=== PATIENT | female | born 1990 | race Caucasian/White ===

== ENCOUNTER → 2017-04-26 | Outpatient (CLI) | payer OTHER ==
--- NOTE | 2017-04-27 06:59 | US ---
EXAMINATION TYPE: US OB <= 14 wk fetus DATE OF EXAM: 04/26/2017 COMPARISON: NONE CLINICAL HISTORY: Z36 Confirm dates. EXAM PERFORMED: Transabdominal (TA) EXAM MEASUREMENTS: GESTATIONAL AGE / DATING Physician Established: Not yet established Dates by LMP: (10 weeks/2 days) EDC: 11/20/2017 Dates by First Scan: No previous this is first scan Dates by Current Scan for: (9 weeks/1 days) EDC: 11/28/2017 MATERNAL ANATOMY Uterus: 13.7 x 6.1 x 7.5 cm Right Ovary: 3.1 x 1.9 x 2.6 cm Left Ovary: 2.6 x 1.9 x 1.6 cm Post CDS / Adnexa: wnl Presence of free fluid: no Presence of corpus luteal cyst: no Presence of subchorionic bleed: no GESTATION / SURVEY CRL: 3.25cm (10 weeks/1 days) MSD: 3.1 (8 weeks/0 days) Yolk Sac (normal less than 6mm): not seen Heart Rate: 175 bpm Rhythm: Normal IUP: Viable IUP Date of LMP: 02/13/2017 Beta HcG (if available): Not available at this time Live IUP 9wks 1day BELEN 11/28/2017 HR 175BPM IMPRESSION: Live intrauterine with sonographic age of 9 weeks and 1 day and estimated date of delivery of 11/28/2017. Dates are concordant with menstrual age.
== END | disposition home or self-care (01) ==
LOC: RADUSMAIN 18:21
PROVIDERS: ATTEND Obstetrics & Gynecology
DX: Z36.89 Encounter for other specified antenatal screening (principal); Z3A.09 9 weeks gestation of pregnancy
CPT/HCPCS: 76801

== ENCOUNTER 2017-11-09 14:12 | Outpatient (CLI) | payer OTHER ==
[2017-11-09 15:06] VITALS: BP 130/75; PULSE 90; RESP 16; TEMP 97.7
[2017-11-09 15:07] LABS: Appearance,Urine Cloudy (Clear); Bacteria,Urine Rare /hpf; Bilirubin,Urine Negative (Negative); Blood,Urine Negative (Negative); Color,Urine Yellow; Glucose,Urine (UA) Negative (Negative); Ketones,Urine Negative (Negative); Leukocyte Esterase,Urine Small (Negative); Mucus,Urine Rare /hpf; Nitrite,Urine Negative (Negative); Protein,Urine Trace (Negative); RBC,Urine 1 /hpf (0-5); Specific Gravity,Urine 1.022 (1.001-1.035); Squamous Epithelial Cell,Urine 12 /hpf (0-4); Urobilinogen,Urine <2.0 mg/dL (<2.0); WBC,Urine 5 /hpf (0-5)
[2017-11-09 15:11] LABS: Basophils % (A) 0 %; Eosinophils # (A) 0.1 k/uL (0-0.7); Eosinophils % (A) 1 %; HCT 35.6 % (34.0-46.0); HGB 12.3 gm/dL (11.4-16.0); Lymphocytes # (A) 1.8 k/uL (1.0-4.8); Lymphocytes % (A) 19 %; MCH 27.6 pg (25.0-35.0); MCHC 34.7 g/dL (31.0-37.0); MCV 79.5 fL (80.0-100.0); Mean Platelet Volume 7.2; Monocytes # (A) 0.5 k/uL (0-1.0); Monocytes % (A) 5 %; Neutrophils % (A) 74 %; Platelet Count 218 k/uL (150-450); RBC 4.47 m/uL (3.80-5.40); RDW 14.8 % (11.5-15.5); WBC 9.5 k/uL (3.8-10.6)
[2017-11-09 15:26] LABS: ALT 27 U/L (9-52); AST 15 U/L (14-36); Blood Urea Nitrogen 11 mg/dL (7-17); LDH 291 U/L (313-618)
--- NOTE | 2017-11-11 08:46 | P.MSEPDOC ---
Presenting Problems - Arrival Data Date of Arrival on Unit: 11/09/17 Time of Arrival on Unit: 14:13 Mode of Transport: Ambulatory - Complaint Comment: Pt seen in office by Dr Swan with elevated B/P, sent over for evaluation Medical History - Information : 3 Para: 2 Term: 2 : 0 Abortions: Spontaneous or Elective: 0 Number of Living Children: 2 - Gestational Age Gestational Age by BELEN (wks/days): 37 Weeks and 2 Days - History Complications: Prior Review of Systems - Review of Systems Constitutional: No problems Breast: No problems ENT: No problems Cardiovascular: No problems Respiratory: No problems Gastrointestinal: No problems Genitourinary: No problems Musculoskeletal: No problems Neurological: No problems Skin: No problems Vital Signs - Temperature Temperature: 97.7 F Temperature Source: Temporal Artery Scan - Pulse Pulse Oximetery Pulse Rate: 90 Pulse Assessment Method: Automatic Cuff - Respirations Respiratory Rate: 16 Oxygen Delivery Method: Room Air - Blood Pressure Right Arm Sitting Blood Pressure: 130/75 Blood Pressure Mean: 93 Blood Pressure Source: Automatic Cuff Medical Screen Scoring (Pre) - Cervical Exam Dilation: Exam Deferred Effacement: Exam Deferred Membranes: Intact - Uterine Contractions Frequency: > 5 minutes apart = 1 Duration: N/A Intensity: N/A - Maternal Vital Signs Maternal Temperature: N/A Maternal Blood Pressure: N/A Signs of Preeclampsia: N/A - Pain Assessment Pain Intensity: 0 - Maternal Trauma Maternal Trauma: N/A - Assessment Baseline FHR: 132 Heart Rate - NICHD Category: Category I (Normal) = 0 NST: Reactive Position: N/A Station: N/A - Total Score Total Score (Pre): 1 - Level of Risk Level of Risk: Low (0-5) Physician Notification (Pre) - Physician Notified Physician Notified Date: 11/09/17 Physician Notified Time: 16:00 Physician/Practitioner Notifed:: Dr Swan - Notification Comment Comment: PI labs reviewed by Dr Swan, WNL Disposition - Disposition OB Disposition: Discharge to home Discharge Date: 11/09/17 Discharge Time: 16:15 I agree with the RN Medical Screening Exam: Yes Risk & Benefit of care provided described in d/c instruction: Yes Diagnosis: GESTATIONAL HTN W/O SIGNIFICANT PROTEINURIA, THIRD TRIMESTER
== END 2017-11-09 16:15 | disposition home or self-care (01) ==
LOC: FBPOP 14:12
PROVIDERS: ATTEND Obstetrics & Gynecology
DX: O13.3 Gestational [pregnancy-induced] hypertension without significant proteinuria, third trimester (principal); Z3A.37 37 weeks gestation of pregnancy
CPT/HCPCS: 59025; 82570; 84156; 82565; 83615; 84450; 84460; 84520; 84550; 85025; 81001; G0463; 99215

== ENCOUNTER 2017-11-11 11:07 | Outpatient (CLI) | payer OTHER ==
[2017-11-11 13:10] VITALS: BP 138/76; PULSE 93; RESP 16; TEMP 97.5
--- NOTE | 2017-11-12 02:34 | P.MSEPDOC ---
Presenting Problems - Arrival Data Date of Arrival on Unit: 11/11/17 Time of Arrival on Unit: 11:18 Mode of Transport: Ambulatory - Complaint OB-Reason for Admission/Chief Complaint: NST, Other Comment: pt arrived for nst and serial of blood pressures. pt states she was here on to have her blood pressure checked Medical History - Information : 3 Para: 2 Term: 2 : 0 Abortions: Spontaneous or Elective: 0 Number of Living Children: 2 - Gestational Age Gestational Age by BELEN (wks/days): 37 Weeks and 4 Days - History Complications: Prior Review of Systems - Review of Systems Constitutional: No problems Breast: No problems ENT: No problems Cardiovascular: No problems Respiratory: No problems Gastrointestinal: No problems Genitourinary: No problems Musculoskeletal: No problems Neurological: No problems Skin: No problems Vital Signs - Temperature Temperature: 97.5 F Temperature Source: Oral - Pulse Right Brachial Pulse Rate: 93 Pulse Assessment Method: Automatic Cuff - Respirations Respiratory Rate: 16 Oxygen Delivery Method: Room Air O2 Sat by Pulse Oximetry: 98 - Blood Pressure Right Arm Blood Pressure: 138/76 Blood Pressure Mean: 96 Blood Pressure Source: Automatic Cuff Medical Screen Scoring (Pre) - Cervical Exam Dilation: Exam Deferred Effacement: Exam Deferred Membranes: Intact - Uterine Contractions Frequency: N/A Duration: N/A Intensity: N/A - Maternal Vital Signs Maternal Temperature: N/A Maternal Blood Pressure: N/A Signs of Preeclampsia: N/A Maternal Respirations: N/A - Pain Assessment Pain Scale Used: Numeric (1 - 10) Pain Intensity: 0 Pain Management Goal: 0 Pain Behavior: Vocalization - Maternal Trauma Maternal Trauma: N/A - Assessment Baseline FHR: 130 - Total Score Total Score (Pre): 0 Medical Screen Scoring (Post) - Cervical Exam Dilation: Exam Deferred Effacement: Exam Deferred Membranes: Intact - Uterine Contractions Frequency: N/A Duration: N/A Intensity: N/A - Maternal Vital Signs Maternal Temperature: N/A Signs of Preeclampsia: N/A Maternal Respirations: N/A - Pain Assessment Pain Scale Used: Numeric (1 - 10) Pain Intensity: 0 Pain Management Goal: 0 Pain Behavior: Vocalization - Maternal Trauma Maternal Trauma: N/A - Assessment Heart Rate: 130 Heart Rate - NICHD Category: Category I (Normal) = 0 NST: Reactive Position: N/A Station: N/A - Total Score Total Score (Post): 0 - Post Treatment Level of Risk Post Treatment Level of Risk: Low (0-5) Physician Notification (Post) - Physician Notified Physician Notified Date: 11/11/17 Physician Notified Time: 12:05 Spoke With: dr gamboa New Order Received: Yes - Notification Comment Comment: may discharge to home after reactive nst Disposition - Disposition OB Disposition: Discharge to home Discharge Date: 11/11/17 Discharge Time: 12:35 I agree with the RN Medical Screening Exam: Yes Risk & Benefit of care provided described in d/c instruction: Yes Diagnosis: RELATED CONDITIONS, UNSPECIFIED, THIRD TRIMESTER (nst and bp check)
== END 2017-11-11 12:35 | disposition home or self-care (01) ==
LOC: FBPOP 11:07
PROVIDERS: ATTEND Obstetrics & Gynecology
DX: O26.93 Pregnancy related conditions, unspecified, third trimester (principal); Z3A.37 37 weeks gestation of pregnancy
CPT/HCPCS: 59025; G0463; 99213

== ENCOUNTER 2017-11-13 11:22 | Inpatient (IN) | payer OTHER ==
[2017-11-13 12:11] LABS: Appearance,Urine Clear (Clear); Bilirubin,Urine Negative (Negative); Blood,Urine Negative (Negative); Color,Urine Yellow; Glucose,Urine (UA) 1+ (Negative); Ketones,Urine Negative (Negative); Leukocyte Esterase,Urine Negative (Negative); Nitrite,Urine Negative (Negative); Protein,Urine Negative (Negative); Specific Gravity,Urine 1.015 (1.001-1.035); Urobilinogen,Urine <2.0 mg/dL (<2.0)
[2017-11-13 12:25] LABS: Basophils % (A) 0 %; Eosinophils % (A) 0 %; HCT 36.2 % (34.0-46.0); HGB 12.6 gm/dL (11.4-16.0); Lymphocytes # (A) 1.9 k/uL (1.0-4.8); Lymphocytes % (A) 21 %; MCH 27.5 pg (25.0-35.0); MCHC 34.8 g/dL (31.0-37.0); MCV 79.1 fL (80.0-100.0); Mean Platelet Volume 7.4; Monocytes # (A) 0.7 k/uL (0-1.0); Monocytes % (A) 7 %; Neutrophils # (A) 6.3 k/uL (1.3-7.7); Neutrophils % (A) 69 %; Platelet Count 216 k/uL (150-450); RBC 4.57 m/uL (3.80-5.40); RDW 14.5 % (11.5-15.5); WBC 9.1 k/uL (3.8-10.6)
[2017-11-13 12:36] LABS: Partial Thromboplastin Time 22.6 sec (22.0-30.0); Prothrombin Time 9.5 sec (9.0-12.0)
[2017-11-13 12:39] LABS: ALT 27 U/L (9-52); AST 15 U/L (14-36); Blood Urea Nitrogen 9 mg/dL (7-17); LDH 279 U/L (313-618); Uric Acid 6.1 mg/dL (3.7-7.4)
[2017-11-13] MEDS ORDERED: CITRIC ACID-SODIUM CITRATE 15 ML CUP PO ONE (13:15)
[2017-11-13] MEDS ORDERED: LACTATED RINGERS 1,000 ML IV ONE (13:15)
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
[2017-11-13 15:22] VITALS: BMI 48.6
[2017-11-13 15:41] LABS: Basophils % (A) 0 %; Eosinophils % (A) 0 %; HCT 36.8 % (34.0-46.0); HGB 12.7 gm/dL (11.4-16.0); Lymphocytes # (A) 1.8 k/uL (1.0-4.8); Lymphocytes % (A) 17 %; MCH 27.2 pg (25.0-35.0); MCHC 34.4 g/dL (31.0-37.0); MCV 79.1 fL (80.0-100.0); Mean Platelet Volume 7.3; Monocytes # (A) 0.6 k/uL (0-1.0); Monocytes % (A) 5 %; Neutrophils # (A) 8.1 k/uL (1.3-7.7); Neutrophils % (A) 76 %; Platelet Count 225 k/uL (150-450); RBC 4.65 m/uL (3.80-5.40); RDW 14.6 % (11.5-15.5); WBC 10.6 k/uL (3.8-10.6)
[2017-11-13] MEDS: LACTATED RINGERS 1,000 ML IV SCH ×3 (17:26→22:40)
[2017-11-13] MEDS ORDERED: MORPHINE SULFATE (PF) 0.3 MG/0.3 ML SYR ONE (17:39)
[2017-11-13] MEDS ORDERED: ONDANSETRON 4 MG/2 ML VIAL ONE (17:39)
[2017-11-13] MEDS ORDERED: PHENYLEPHRINE-0.9% NACL SYG 1 MG/10 ML SYRINGE ONE (17:39)
[2017-11-13] MEDS ORDERED: OXYTOCIN 10 UNIT/ML 1 ML VIAL ONE (17:39)
[2017-11-13] MEDS ORDERED: LACTATED RINGERS 1,000 ML BAG IV ONE (17:39)
[2017-11-13] MEDS ORDERED: KETOROLAC 30 MG/ML 1 ML VIAL ONE (17:39)
[2017-11-13] MEDS ORDERED: NALBUPHINE 10 MG/ML AMPUL IV PRN (18:06)
[2017-11-13] MEDS ORDERED: MORPHINE SULFATE 2 MG/ML SYRINGE IVP PRN (18:06)
[2017-11-13] MEDS ORDERED: NALOXONE 0.4 MG/ML 1 ML VIAL IV PRN ×2 (18:06→18:13)
[2017-11-13] MEDS ORDERED: diphenhydrAMINE 50 MG/ML 1 ML VIAL IVP PRN ×3 (18:06→18:13)
[2017-11-13] MEDS ORDERED: KETOROLAC 30 MG/ML 1 ML VIAL IVP PRN (18:13)
[2017-11-13] MEDS ORDERED: ZOLPIDEM 5 MG TAB PO PRN (18:13)
[2017-11-13] MEDS ORDERED: ACETAMINOPHEN TAB 325 MG TAB PO PRN (18:13)
[2017-11-13] MEDS ORDERED: diphenhydrAMINE 50 MG CAP PO PRN (18:13)
[2017-11-13] MEDS ORDERED: METOCLOPRAMIDE 5 MG/ML 2 ML VIAL IVP PRN (18:13)
[2017-11-13] MEDS ORDERED: ONDANSETRON 4 MG/2 ML VIAL IVP PRN (18:13)
[2017-11-13] MEDS ORDERED: HYDROcodone/APAP 7.5-325MG 1 EACH TAB PO PRN (18:13)
[2017-11-13] MEDS ORDERED: diphenhydrAMINE 25 MG CAP PO PRN (18:13)
--- NOTE | 2017-11-13 18:17 | P.OP ---
Date of Procedure: 11/13/17 Preoperative Diagnosis: Intrauterine at term: Previous section: Polyhydramnios Postoperative Diagnosis: Same Procedure(s) Performed: Repeat low-transverse section Anesthesia: spinal Surgeon: Todd Swan Business Line Manager #1: Edwin Tony Pathology: other (Placenta) Condition: stable Disposition: floor Operative Findings: Male scores of 9 and 9 at one and 5 minutes respectively and the weight was 9 lbs. 11 oz. a nuchal cord 1 was noted and easily reduced. Description of Procedure: Patient was taken to the operating suite where a spinal anesthetic was found be adequate. She was prepped and draped in the normal sterile fashion and placed in the dorsal supine position with leftward tilt. Initially a Pfannenstiel skin incision was made and this incision was then carried through to underlying layer of the fascia with a second knife. Fascia was then nicked in the midline and this opening was extended laterally with Saavedra scissors. Superior and inferior aspect of this incision were then grasped tented up and bluntly and sharply dissected off the rectus muscles. Rectus muscles were then divided midline and blunt dissection through the peritoneum was made. This opening was then extended superiorly and inferiorly with good visualization of both bowel bladder. Bladder blade was then placed and the bladder flap was identified, entered sharply with Metzenbaum scissors and bladder flap was digitally created. Knife was then used to make ilana incision in the uterus and hemostat was used to complete the opening through the amniotic sac. Significant quantity of the amniotic fluid was drained before fully extending the incision. Head was then H medically delivered mouth nares were bulb suctioned and a nuchal cord 1 was easily reduced. Anterior and posterior shoulders were then delivered gentle downward upper traction followed by the remainder the baby. Umbilical cord was then clamped cut usual fashion an nursery personnel was present to assume care. Ascent was then delivered intact Pitocin was added to the IV. Uterus was then exteriorized cleared of clots and debris and closed in 2 layers with 0 Vicryl suture. Blood and debris was then suctioned from the posterior cul-de-sac and the uterus was reinserted into the abdomen. Peritoneal layer was then closed with 0 Vicryl suture fascial layer was closed with 0 Vicryl suture 3-0 Vicryl was then used to reapproximate the skin and the skin was then closed with memo. Sponge, lap, needle counts were all correct 2. Patient was then taken to the recovery room in stable and satisfactory condition.
[2017-11-13] MEDS: SENNOSIDES-DOCUSATE SODIUM 1 EACH TAB PO SCH (20:44)
[2017-11-14] MEDS: LACTATED RINGERS 1,000 ML IV SCH (04:58)
--- NOTE | 2017-11-14 06:11 | P.PN ---
Progress Note - Text Progress Note Date: 11/14/17 26 yo female status post . Post-op day #1. Patient received intrathecal Duramorph. Patient was seen today, sitting up in bed no complaints, pain VAS score 0/10, no headache, no itching, no nausea and vomiting. Assessment and plan: Doing well in general no complications from anesthesia.
[2017-11-14 07:29] LABS: Basophils % (A) 0 %; Eosinophils % (A) 1 %; HCT 32.9 % (34.0-46.0); HGB 11.2 gm/dL (11.4-16.0); Lymphocytes # (A) 1.4 k/uL (1.0-4.8); Lymphocytes % (A) 15 %; MCH 27.3 pg (25.0-35.0); MCHC 34.1 g/dL (31.0-37.0); Mean Platelet Volume 7.4; Monocytes # (A) 0.6 k/uL (0-1.0); Monocytes % (A) 7 %; Neutrophils # (A) 7.3 k/uL (1.3-7.7); Neutrophils % (A) 77 %; Platelet Count 164 k/uL (150-450); RBC 4.12 m/uL (3.80-5.40); RDW 14.5 % (11.5-15.5); WBC 9.5 k/uL (3.8-10.6)
[2017-11-14] MEDS: SENNOSIDES-DOCUSATE SODIUM 1 EACH TAB PO SCH ×2 (08:00→19:56)
--- NOTE | 2017-11-14 10:05 | PN ---
Subjective - Subjective Principal diagnosis: Post op day 1: Repeat section Interval history: Doing very well, involuting, voiding and she is tolerating her diet. Patient reports: Reports appetite normal, Reports voiding normally, Reports pain well controlled, Reports ambulating normally Drake: doing well Objective - Exam Lungs: bilateral: normal Chest: Normal S1, Normal S2 Extremities: Present: normal Abdomen: Present: normal appearance, soft. Absent: distention, tenderness Incision: Present: normal, dry, intact Uterus: Present: normal, firm MTDD
[2017-11-14] MEDS: IBUPROFEN 600 MG TAB PO PRN ×2 (15:02→22:57)
[2017-11-15 00:23] VITALS: RESP 16
[2017-11-15] MEDS: SENNOSIDES-DOCUSATE SODIUM 1 EACH TAB PO SCH (07:12)
[2017-11-15] MEDS: IBUPROFEN 600 MG TAB PO PRN ×2 (07:12→12:51)
--- NOTE | 2017-11-15 08:51 | P.DS ---
Providers Date of admission: 11/13/17 12:43 Expected date of discharge: 11/15/17 Attending physician: Todd Swan Primary care physician: Stated None Hospital Course: Renetta is doing very well postop day 2. She is involuting, voiding, and she is tolerating her diet. She voices no complaints. Vital signs are stable and afebrile. Heart regular, lungs clear, extremities without pain. Her abdomen is soft, positive bowel sounds are noted, incision is otherwise clean dry and intact. We'll plan to have her follow up with me on Monday for staple removal. Prescription for Motrin has been forwarded to her pharmacy. All other questions are answered for her and she is stable for discharge at this time. Patient Condition at Discharge: Good Plan - Discharge Summary New Discharge Prescriptions: New Ibuprofen [Motrin] 600 mg PO Q6HR PRN #30 tab PRN Reason: Pain No Action Pnv,Calcium 72/Iron/Folic Acid [ Plus Tablet] 1 tab PO DAILY Discharge Medication List Pnv,Calcium 72/Iron/Folic Acid [ Plus Tablet] 1 tab PO DAILY 11/09/17 [ History] Ibuprofen [Motrin] 600 mg PO Q6HR PRN #30 tab 11/15/17 [Rx] Follow up Appointment(s)/Referral(s): Todd Swan DO [Doctor of Osteopathic Medicine] - 11/17/17 Activity/Diet/Wound Care/Special Instructions: No heavy lifting, limit stairs and driving, and pelvic rest. If any high temperatures, heavy bleeding, or severe pain call my office. Please follow up on Monday for staple removal in the office. Discharge Disposition: HOME SELF-CARE
[2017-11-15] MEDS: LACTATED RINGERS 1,000 ML IV SCH ×2 (09:24→12:17)
[2017-11-15 09:27] VITALS: BP 120/58; PULSE 108; TEMP 98.4
== END 2017-11-15 13:30 | disposition home or self-care (01) | DRG 765 ==
LOC: FBPOP 11:22 → 4FBP 12:43
PROVIDERS: ADMIT Obstetrics & Gynecology; ATTEND Obstetrics & Gynecology
PROC: 10D00Z1 Extraction of Products of Conception, Low, Open Approach (ICD-10-PCS; principal; 2017-11-13)
DX: O13.4 Gestational [pregnancy-induced] hypertension without significant proteinuria, complicating childbirth (principal); O40.3XX0 Polyhydramnios, third trimester, not applicable or unspecified; O34.211 Maternal care for low transverse scar from previous cesarean delivery; Z37.0 Single live birth; Z3A.37 37 weeks gestation of pregnancy; O69.81X0 Labor and delivery complicated by cord around neck, without compression, not applicable or unspecified; Z81.8 Family history of other mental and behavioral disorders; Z83.3 Family history of diabetes mellitus; Z87.440 Personal history of urinary (tract) infections
CPT/HCPCS: 59025; 81003; 82565; 82570; 83615; 84156; 84450; 84460; 84520; 84550; 85025; 85610; 85730; 86850; 86900; 86901; 88307; 99215

== ENCOUNTER 2017-11-22 18:50 | Emergency (ER) | payer OTHER ==
[2017-11-22 18:57] VITALS: BP 142/86; PULSE 70; RESP 16; TEMP 98.4
[2017-11-22] MEDS ORDERED: ACETAMINOPHEN TAB 500 MG TAB PO STA (19:07)
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
--- NOTE | 2017-11-22 20:22 | CT ---
EXAMINATION TYPE: CT brain wo con DATE OF EXAM: 11/22/2017 COMPARISON: 03/25/2012 HISTORY: Headache x 4 days, patient is [address] DLP: 1052 mGycm. Automated Exposure Control for Dose Reduction was Utilized. TECHNIQUE: CT scan of the head is performed without contrast. FINDINGS: Ventricles and sulci appear normal. There is no mass effect nor midline shift. There is n o sign of intracranial hemorrhage. The calvarium appears normal. IMPRESSION: Normal head CT scan. No change..
== END 2017-11-22 20:50 | disposition home or self-care (01) ==
LOC: EC 18:50
DX: R51 Headache (principal)
CPT/HCPCS: 70450; 99284

== ENCOUNTER → 2018-06-14 | Outpatient (CLI) | payer OTHER ==
--- NOTE | 2018-06-14 11:58 | US ---
EXAMINATION TYPE: Transabdominal DATE OF EXAM: 09/12/17 COMPARISON: NONE CLINICAL HISTORY: O46.91 Antepartum hemorrhage First trimester. EXAM PERFORMED: Transvaginal (TV) and Transabdominal (TA) EXAM MEASUREMENTS: GESTATIONAL AGE / DATING Physician Established: (12 weeks/1 days) EDC: 12/26/2018 Dates by LMP: (12 weeks/1 days) EDC: 12/26/2018 Dates by First Scan: No previous this is first scan Dates by Current Scan for: (6 weeks/6 days) EDC: demise MATERNAL ANATOMY Uterus: 12.3 x 5.3 x 6.7 cm Right Ovary: 4.7 x 3.3 x 4.1 cm Left Ovary: 2.0 x 1.6 x 2.1 cm Post CDS / Adnexa: wnl Presence of free fluid: No GESTATION / SURVEY CRL: 0.63 (6 weeks/4 days) MSD: 2.6 cm (7 weeks/2 days) Yolk Sac (normal less than 6mm): 2 mm IUP: Demise Date of LMP: 03/21/2018 Beta HcG (if available): Not available at this time demise. Cystic area right ovary measuring 3.3 x 2.5 x 3.2 cm. Hypoechoic area left ovary measur ing 1.2 x 1.2 x 1.4 cm. Multiple tiny cystic areas visualized to the left of the gestational sac. Nab othian cyst visualized within cervix IMPRESSION: Findings correspond to failed intrauterine as the mean sac diameter is greater than 2.5 cm and no heart rate is identified. Additionally there is discordant growth in comparison to the p rior exam of 04/26/2017 where the fetus measured 9 weeks and 1 day and currently measures 6 weeks and 6 days. Findings were communicated Chrishonda with at Dr. Mckinley's office as Dr. Mckinley was unavailable (and already aware of the results per staff) by Dr. Oglesby at 1150am on 06-14-18.
== END | disposition home or self-care (01) ==
LOC: RADUSWWP 10:54
PROVIDERS: ATTEND Obstetrics & Gynecology
DX: O46.91 Antepartum hemorrhage, unspecified, first trimester (principal); Z3A.01 Less than 8 weeks gestation of pregnancy
CPT/HCPCS: 76801; 76817

== ENCOUNTER 2018-06-21 12:37 | Emergency (ER) | payer OTHER ==
[2018-06-21 12:43] VITALS: PULSE 80; RESP 18; TEMP 97.5
[2018-06-21] MEDS ORDERED: SODIUM CHLORIDE 0.9% 1,000 ML IV STA (14:01)
[2018-06-21 14:59] LABS: Basophils % (A) 0 %; Eosinophils % (A) 0 %; HCT 38.5 % (34.0-46.0); HGB 13.3 gm/dL (11.4-16.0); Lymphocytes # (A) 1.2 k/uL (1.0-4.8); Lymphocytes % (A) 11 %; MCH 27.9 pg (25.0-35.0); MCHC 34.6 g/dL (31.0-37.0); MCV 80.7 fL (80.0-100.0); Mean Platelet Volume 7.1; Monocytes # (A) 0.4 k/uL (0-1.0); Monocytes % (A) 4 %; Neutrophils # (A) 9.6 k/uL (1.3-7.7); Neutrophils % (A) 85 %; Platelet Count 231 k/uL (150-450); RBC 4.77 m/uL (3.80-5.40); RDW 13.7 % (11.5-15.5); WBC 11.3 k/uL (3.8-10.6)
[2018-06-21 15:04] LABS: Appearance,Urine Turbid (Clear); Bilirubin,Urine Negative (Negative); Blood,Urine Large (Negative); Color,Urine Red; Glucose,Urine (UA) Negative (Negative); Ketones,Urine 1+ (Negative); Leukocyte Esterase,Urine Small (Negative); Mucus,Urine Many /hpf; Nitrite,Urine Negative (Negative); PH, Urine 5.5 (5.0-8.0); Protein,Urine 2+ (Negative); RBC,Urine >182 /hpf (0-5); Urobilinogen,Urine <2.0 mg/dL (<2.0); WBC,Urine 3 /hpf (0-5)
[2018-06-21 15:07] LABS: ALT 55 U/L (9-52); AST 28 U/L (14-36); Albumin 4.6 g/dL (3.5-5.0); Alkaline Phosphatase 43 U/L (38-126); Anion Gap 12 mmol/L; Blood Urea Nitrogen 9 mg/dL (7-17); Calcium 9.8 mg/dL (8.4-10.2); Carbon Dioxide 23 mmol/L (22-30); Chloride 107 mmol/L (98-107); Glucose 112 mg/dL (74-99); Lipase 90 U/L (23-300); Potassium 4.5 mmol/L (3.5-5.1); Sodium 142 mmol/L (137-145); Total Bilirubin 0.6 mg/dL (0.2-1.3); Total Protein 8.1 g/dL (6.3-8.2)
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
[2018-06-21 16:17] VITALS: BP 117/74
== END 2018-06-21 16:17 | disposition home or self-care (01) ==
LOC: EC 12:37
DX: O03.9 Complete or unspecified spontaneous abortion without complication (principal); R51 Headache; Z90.49 Acquired absence of other specified parts of digestive tract
CPT/HCPCS: 36415; 80053; 81001; 83690; 85025; 96360; 99284

== ENCOUNTER → 2019-03-28 | Outpatient (CLI) | payer OTHER ==
--- NOTE | 2019-03-28 10:11 | US ---
EXAMINATION TYPE: Transabdominal DATE OF EXAM: 03/28/2019 9:47 AM COMPARISON: NONE CLINICAL HISTORY: Z36 CONFIRM DATES. Confirm dates, 6, para 3, miscarriage 2 EXAM PERFORMED: Transabdominal (TA) EXAM MEASUREMENTS: GESTATIONAL AGE / DATING Physician Established: (8 weeks/6 days) EDC: 11/01/2019 Dates by LMP: (8 weeks/6 days) EDC: 11/01/2019 Dates by First Scan: This is 1st scan Dates by Current Scan for: ( 8 weeks/4 days) EDC: 11/01/2019 MATERNAL ANATOMY Uterus: 13.5 x 5.9 x 6.1cm, anteverted Right Ovary: 3.2 x 2.2 x 2.1cm Left Ovary: 2.9 x 1.6 x 2.1cm Post CDS / Adnexa: wnl Presence of free fluid: no Presence of corpus luteal cyst: right ovary: 1.4 x 1.2 x 1.4cm hypoechoic area, possible corpus luteu m Presence of subchorionic bleed: no GESTATION / SURVEY CRL: 1.9cm (8 weeks/4 days) Yolk Sac (normal less than 6mm): not seen at this time Heart Rate: 183 bpm Rhythm: Normal IUP: Live IUP Date of LMP: 01/25/2019 Live single IUP measuring 8 weeks 4 days with a heart rate of 183bpm and an estimated delivery date o f 11/03/2019. IMPRESSION: Live intrauterine with a sonographic age of 8 weeks and 4 days and estimated da te of delivery of 11/03/2019, concordant with menstrual age. heart rate is noted to be upper reilly its of normal at 183.
== END | disposition home or self-care (01) ==
LOC: RADUSWWP 09:31
PROVIDERS: ATTEND Obstetrics & Gynecology
DX: Z36.87 Encounter for antenatal screening for uncertain dates (principal); Z3A.08 8 weeks gestation of pregnancy
CPT/HCPCS: 76801

== ENCOUNTER → 2019-10-25 | Outpatient (CLI) | payer OTHER | END | disposition home or self-care (01) | LOC: LABWHC1 10:03 | PROVIDERS: ATTEND Obstetrics & Gynecology | DX: U07.1 COVID-19 (principal) | CPT/HCPCS: 87635 ==

== ENCOUNTER 2019-10-28 06:04 | Inpatient (IN) | payer OTHER ==
[2019-10-25 12:29] VITALS: BMI 48.4
[2019-10-28] MEDS ORDERED: LACTATED RINGERS 1,000 ML IV ONE (06:18)
[2019-10-28] MEDS ORDERED: CITRIC ACID-SODIUM CITRATE 15 ML CUP PO ONE (06:18)
[2019-10-28 06:38] LABS: Basophils % (A) 0 %; Eosinophils # (A) 0.1 k/uL (0-0.7); Eosinophils % (A) 1 %; HGB 12.1 gm/dL (11.4-16.0); Lymphocytes # (A) 1.8 k/uL (1.0-4.8); Lymphocytes % (A) 20 %; MCH 27.7 pg (25.0-35.0); MCHC 33.4 g/dL (31.0-37.0); MCV 82.9 fL (80.0-100.0); Mean Platelet Volume 7.7; Monocytes # (A) 0.5 k/uL (0-1.0); Monocytes % (A) 5 %; Neutrophils # (A) 6.5 k/uL (1.3-7.7); Neutrophils % (A) 72 %; Platelet Count 201 k/uL (150-450); RBC 4.35 m/uL (3.80-5.40); RDW 14.2 % (11.5-15.5)
[2019-10-28] MEDS ORDERED: ceFAZolin 3 GM in SODIUM CHLORIDE 0.9% 100 ML IVPB ONE (07:00)
[2019-10-28] MEDS: LACTATED RINGERS 1,000 ML IV SCH ×5 (07:26→23:28)
[2019-10-28] MEDS ORDERED: PROPOFOL 10 MG/ML 20 ML VIAL IV ONE (08:02)
[2019-10-28] MEDS ORDERED: SUCCINYLCHOLINE CHLORIDE 100 MG/5 ML SYR IV ONE (08:02)
[2019-10-28] MEDS ORDERED: fentaNYL (PF) 50 MCG/ML 2 ML AMP ONE (08:02)
[2019-10-28] MEDS ORDERED: OXYTOCIN 10 UNIT/ML 1 ML VIAL ONE (08:02)
[2019-10-28] MEDS ORDERED: KETOROLAC 30 MG/ML 1 ML VIAL ONE (08:02)
[2019-10-28] MEDS ORDERED: ONDANSETRON 4 MG/2 ML VIAL ONE (08:02)
[2019-10-28] MEDS ORDERED: diphenhydrAMINE 50 MG CAP PO PRN (08:47)
[2019-10-28] MEDS ORDERED: HYDROcodone/APAP 7.5-325MG 1 EACH TAB PO PRN (08:47)
[2019-10-28] MEDS ORDERED: NALOXONE 0.4 MG/ML 1 ML VIAL IV PRN (08:47)
[2019-10-28] MEDS ORDERED: MEASLES-MUMPS-RUBELLA VACC/PF 12,500 UNIT/0.5 ML VIAL SQ ONE (08:47)
[2019-10-28] MEDS ORDERED: ZOLPIDEM 5 MG TAB PO PRN (08:47)
[2019-10-28] MEDS ORDERED: diphenhydrAMINE 25 MG CAP PO PRN (08:47)
[2019-10-28] MEDS ORDERED: ONDANSETRON 4 MG/2 ML VIAL IVP PRN (08:47)
[2019-10-28] MEDS ORDERED: METOCLOPRAMIDE 5 MG/ML 2 ML VIAL IVP PRN (08:47)
[2019-10-28] MEDS ORDERED: diphenhydrAMINE 50 MG/ML 1 ML VIAL IVP PRN ×2 (08:47)
[2019-10-28] MEDS ORDERED: KETOROLAC 30 MG/ML 1 ML VIAL IVP PRN (08:47)
[2019-10-28] MEDS ORDERED: ACETAMINOPHEN TAB 325 MG TAB PO PRN (08:47)
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
--- NOTE | 2019-10-28 08:57 | P.OP ---
Date of Procedure: 10/28/19 Preoperative Diagnosis: Intrauterine at term: Prior sections: Polyhydramnios: Family planning Postoperative Diagnosis: Same Procedure(s) Performed: Repeat low transverse section with bilateral tubal occlusion Filshie clips Anesthesia: SON Surgeon: Todd Swan Weeder Thinner #1: Edwin Tony Estimated Blood Loss (ml): 800 IV fluids (ml): 500 Urine output (ml): 200 Pathology: other (Placenta) Condition: stable Disposition: floor Operative Findings: Female scores of 9 and 9 at one and 5 minutes respectively and weight was 7 lbs. 15 oz. A decision to move for a general anesthetic was made due to history of visual disturbances after her last section and concern over potential MS. Description of Procedure: Patient was taken to the operating suite where a general anesthetic was found be adequate. She was prepped and draped in normal sterile fashion and placed in dorsal supine position with leftward tilt. Initially a Pfannenstiel skin incision was made this incision was then carried through to underlying layer of the fascia was second knife. Fascia was then nicked in the midline and this opening was extended laterally with Saavedra scissors. Superior and inferior aspect of this incision were then grasped tented up and bluntly and sharply dissected off the rectus muscles. Entry into the peritoneum was RE performed and blunt dissection laterally was made. Bladder blade was then placed bladder flap identified and entered with metastases scissors and bluntly dissected out of the operative field. Knife was then used to fully open the uterus and it was then extended bluntly. Artificial rupture membranes was performed and clear fluid is noted. Large quantity of amniotic fluid is noted due to polyhydramnios. Head was then H medically delivered and mouth nares were bulb suctioned. Interim posterior shoulders were then Easily delivered and the umbilical cord was clamped cut usual fashion nursery personnel present to assume care. Placenta was then delivered intact and Pitocin was added to the IV. Uterus was then exteriorized cleared of clots and debris and closed in 1 layer with 0 Vicryl suture. Once excellent hemostasis was obtained. Gloves were used to clip both the right and left fallopian tubes 2 cm from uterine cornu. Blood and debris was then suctioned from the posterior cul-de-sac and uterus was reinserted into the abdomen peritoneal layer was then reapproximated with 3-0 Vicryl suture. Fascial layer was then closed with 0 Vicryl suture. One layer of 3-0 Vicryl was placed in deep subcuticular tissues reapproximate skin and close that space. Skin was then closed with 3-0 Vicryl subcuticular. Sponge, lap, needle counts were all correct 2. A she was then taken to the recovery room in stable and satisfactory condition.
[2019-10-28] MEDS ORDERED: HYDROmorphone PCA 10 MG/50 ML BAG IV PRN (09:27)
[2019-10-28] MEDS: SENNOSIDES-DOCUSATE SODIUM 1 EACH TAB PO SCH (20:31)
[2019-10-29] MEDS: LACTATED RINGERS 1,000 ML IV SCH ×3 (05:48→21:46)
[2019-10-29 06:16] LABS: Basophils % (A) 0 %; Eosinophils # (A) 0.1 k/uL (0-0.7); Eosinophils % (A) 1 %; HCT 27.2 % (34.0-46.0); Lymphocytes # (A) 1.1 k/uL (1.0-4.8); Lymphocytes % (A) 15 %; MCHC 33.5 g/dL (31.0-37.0); MCV 83.6 fL (80.0-100.0); Mean Platelet Volume 7.7; Monocytes # (A) 0.4 k/uL (0-1.0); Monocytes % (A) 6 %; Neutrophils # (A) 5.2 k/uL (1.3-7.7); Neutrophils % (A) 77 %; Platelet Count 153 k/uL (150-450); RBC 3.25 m/uL (3.80-5.40); RDW 14.6 % (11.5-15.5); WBC 6.8 k/uL (3.8-10.6)
[2019-10-29 06:17] LABS: HGB 9.1 gm/dL (11.4-16.0)
[2019-10-29] MEDS: SENNOSIDES-DOCUSATE SODIUM 1 EACH TAB PO SCH ×2 (08:42→21:44)
--- NOTE | 2019-10-29 09:33 | P.PNOBGPC ---
Subjective - Subjective Principal diagnosis: Postop day 1 Interval history: Renetta is doing very well postop day 1. She is involuting, voiding and tolerating her diet. She voices no complaints. Advance diet today. Patient reports: Reports appetite normal, Reports voiding normally, Reports pain well controlled, Reports ambulating normally : doing well Objective - Vital Signs Latest vital signs: Vital Signs Temp Pulse Resp BP Pulse Ox 10/29/19 08:00 98.5 F 100 16 130/71 99 10/29/19 04:00 98.6 F 83 20 112/62 10/29/19 00:00 98.6 F 88 18 108/55 10/28/19 20:00 98.6 F 82 16 104/66 10/28/19 16:00 98.4 F 80 16 145/83 98 10/28/19 10:57 98.3 F 80 16 124/65 98 10/28/19 10:27 97.8 F 93 16 115/68 10/28/19 09:57 96.1 F L 93 16 112/55 99 10/28/19 09:42 96.6 F L 76 16 127/63 98 Intake and Output 10/28/19 10/29/19 10/29/19 22:59 06:59 14:59 Intake Total 600 Output Total 850 0 700 Balance -250 0 -700 Intake: Oral 600 Output: Urine 850 0 700 Straight 400 Uretheral (Danielle) 450 - Exam Lungs: bilateral: normal Chest: Normal S1, Normal S2 Extremities: Present: normal Abdomen: Present: normal appearance, soft. Absent: distention, tenderness Incision: Present: normal, dry, intact Uterus: Present: normal, firm - Labs Labs: Abnormal Lab Results - Last 24 Hours (Table) 10/29/19 Range/Units 06:01 RBC 3.25 L (3.80-5.40) m/uL Hgb 9.1 L D (11.4-16.0) gm/dL Hct 27.2 L (34.0-46.0) %
--- NOTE | 2019-10-29 10:41 | P.PN ---
Progress Note - Text Progress Note Date: 10/29/19 Patient seen and examined at beside. POD #1 from with spinal anesthesia and duramorph. Patient tolerated procedure well and has no complaints today. Patient denies CP, SOB, fevers, chills, back pain, numbness, headaches, dizziness. Patient can ambulate without difficulty and is voiding normally. procedure site is clean, dry without erythema. All questions answered.
[2019-10-29] MEDS: IBUPROFEN 600 MG TAB PO PRN ×2 (13:15→21:44)
[2019-10-30 01:20] VITALS: RESP 16
[2019-10-30] MEDS: IBUPROFEN 600 MG TAB PO PRN (06:11)
[2019-10-30 08:16] VITALS: BP 129/70; PULSE 89; TEMP 98.1
--- NOTE | 2019-10-30 08:52 | P.DS ---
Providers Date of admission: 10/28/19 06:04 Expected date of discharge: 10/30/19 Attending physician: Todd Swan Primary care physician: Stated None Hospital Course: Renetta is doing very well postop day 2. She is requesting discharge to home today. She is involuting, voiding tolerating her diet. She is also passing flatus. Vital signs are stable and afebrile. Heart regular, lungs clear, extremities without pain. Abdomen soft uterus is firm and lochia is light. Her incision is otherwise clean dry and intact. She'll follow me in 1 week. Prescription for Motrin is for to pharmacy at her request. All other questions are answered for her and she is stable for discharge at this time. Patient Condition at Discharge: Good Plan - Discharge Summary Discharge Rx Participant: Yes New Discharge Prescriptions: New Ibuprofen [Motrin] 600 mg PO Q6HR PRN #30 tab PRN Reason: Pain No Action Pnv No.95/Ferrous Fum/Folic AC [ Multivitamin Tablet] 1 each PO DAILY Calcium Carbonate [Tums] 500 mg PO DIRECTED PRN PRN Reason: Heartburn Discharge Medication List Calcium Carbonate [Tums] 500 mg PO DIRECTED PRN 10/25/19 [History] Pnv No.95/Ferrous Fum/Folic AC [ Multivitamin Tablet] 1 each PO DAILY 10/25/19 [History] Ibuprofen [Motrin] 600 mg PO Q6HR PRN #30 tab 10/30/19 [Rx] Follow up Appointment(s)/Referral(s): Todd Swan DO [Doctor of Osteopathic Medicine] - 1 Week Activity/Diet/Wound Care/Special Instructions: No heavy lifting, limit stairs and driving, and pelvic rest. If any high temperatures, heavy bleeding, or severe pain call my office Discharge Disposition: HOME SELF-CARE
[2019-10-30] MEDS: SENNOSIDES-DOCUSATE SODIUM 1 EACH TAB PO SCH (10:52)
== END 2019-10-30 12:15 | disposition home or self-care (01) | DRG 785 ==
LOC: 4FBP 06:04
PROVIDERS: ADMIT Obstetrics & Gynecology; ATTEND Obstetrics & Gynecology
PROC: 10D00Z1 Extraction of Products of Conception, Low, Open Approach (ICD-10-PCS; principal; 2019-10-28 08:00)
PROC: 3E00X4Z Introduction of Serum, Toxoid and Vaccine into Skin and Mucous Membranes, External Approach (ICD-10-PCS; principal; 2019-10-28 08:00)
PROC: 0UL70CZ Occlusion of Bilateral Fallopian Tubes with Extraluminal Device, Open Approach (ICD-10-PCS; principal; 2019-10-28 08:00)
DX: O34.211 Maternal care for low transverse scar from previous cesarean delivery (principal); N85.8 Other specified noninflammatory disorders of uterus; O40.3XX0 Polyhydramnios, third trimester, not applicable or unspecified; Z37.0 Single live birth; Z3A.39 39 weeks gestation of pregnancy; Z23 Encounter for immunization; Z30.2 Encounter for sterilization; Z79.899 Other long term (current) drug therapy; Z90.49 Acquired absence of other specified parts of digestive tract; Z98.890 Other specified postprocedural states; Z81.8 Family history of other mental and behavioral disorders; Z83.3 Family history of diabetes mellitus; Z84.1 Family history of disorders of kidney and ureter; Z82.49 Family history of ischemic heart disease and other diseases of the circulatory system
CPT/HCPCS: 85025; 86850; 86900; 86901; 88307; 90707

== ENCOUNTER 2019-11-08 14:21 | Outpatient (CLI) | payer OTHER ==
[2019-11-08 15:09] LABS: Appearance,Urine Clear (Clear); Bilirubin,Urine Negative (Negative); Blood,Urine Moderate (Negative); Color,Urine Yellow; Glucose,Urine (UA) Negative (Negative); Hyaline Casts,Urine 1 /lpf (0-2); Ketones,Urine Negative (Negative); Leukocyte Esterase,Urine Negative (Negative); Mucus,Urine Rare /hpf; Nitrite,Urine Negative (Negative); PH, Urine 5.5 (5.0-8.0); Protein,Urine Negative (Negative); RBC,Urine 9 /hpf (0-5); Specific Gravity,Urine 1.017 (1.001-1.035); Squamous Epithelial Cell,Urine <1 /hpf (0-4); Urobilinogen,Urine <2.0 mg/dL (<2.0); WBC,Urine 3 /hpf (0-5)
[2019-11-08 15:22] LABS: Basophils % (A) 0 %; Eosinophils # (A) 0.3 k/uL (0-0.7); Eosinophils % (A) 3 %; HCT 31.6 % (34.0-46.0); HGB 10.1 gm/dL (11.4-16.0); Hypochromasia Slight; Lymphocytes # (A) 1.8 k/uL (1.0-4.8); Lymphocytes % (A) 22 %; MCH 26.3 pg (25.0-35.0); MCHC 32.1 g/dL (31.0-37.0); MCV 82.1 fL (80.0-100.0); Mean Platelet Volume 7.3; Monocytes # (A) 0.3 k/uL (0-1.0); Monocytes % (A) 4 %; Neutrophils # (A) 5.6 k/uL (1.3-7.7); Neutrophils % (A) 69 %; Platelet Count 276 k/uL (150-450); RBC 3.84 m/uL (3.80-5.40); RDW 13.9 % (11.5-15.5); Uric Acid 8.5 mg/dL (3.7-7.4); WBC 8.2 k/uL (3.8-10.6)
[2019-11-08 15:57] LABS: African American GFR (CKD) >90 (>60 ml/min/1.73 sqM); Blood Urea Nitrogen 13 mg/dL (7-17); Non-African American GFR(CKD) >90 (>60 ml/min/1.73 sqM)
[2019-11-09 07:24] LABS: Protein/Creatinine Ratio,Urine 0.075
== END 2019-11-08 16:38 | disposition home or self-care (01) ==
LOC: FBPOP 14:21
PROVIDERS: ATTEND Obstetrics & Gynecology
DX: O14.90 Unspecified pre-eclampsia, unspecified trimester (principal); Z3A.00 Weeks of gestation of pregnancy not specified
CPT/HCPCS: 82570; 84156; 82565; 83615; 84450; 84460; 84520; 84550; 85025; 81001; G0463; 99215

== ENCOUNTER 2019-11-12 02:26 | Inpatient (IN) | payer OTHER ==
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
[2019-11-12] MEDS ORDERED: NALOXONE 0.4 MG/ML 1 ML VIAL IV PRN (04:53)
[2019-11-12] MEDS ORDERED: SODIUM CHLORIDE 0.9% 1,000 ML IV SCH (05:00)
[2019-11-12 06:18] VITALS: RESP 18
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
[2019-11-12] MEDS ORDERED: LABETALOL 100 MG TAB PO SCH (09:00)
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
--- NOTE | 2019-11-12 11:13 | P.DS ---
Providers Date of admission: 11/12/19 04:57 Attending physician: Meredith Cole Primary care physician: Stated None Hospital Course: Refer to [facility] for further details Plan - Discharge Summary New Discharge Prescriptions: Continue Labetalol HCl 100 mg PO BID #30 tab No Action Ibuprofen [Motrin] 600 mg PO Q6H PRN PRN Reason: Pain Discharge Medication List Ibuprofen [Motrin] 600 mg PO Q6H PRN 11/12/19 [History] Labetalol HCl 100 mg PO BID #30 tab 11/12/19 [Rx] Follow up Appointment(s)/Referral(s): Peng Kaiser MD [REFERRING] - 1 Week Discharge Disposition: HOME SELF-CARE
[2019-11-12 11:57] VITALS: BP 136/80; PULSE 92; TEMP 98.5
== END 2019-11-12 13:44 | disposition home or self-care (01) | DRG 776 ==
LOC: EC 02:26 → 3SCARD 04:57
PROVIDERS: ADMIT Hospitalist; ATTEND Hospitalist
DX: O16.5 Unspecified maternal hypertension, complicating the puerperium (principal); R51 Headache; Z81.8 Family history of other mental and behavioral disorders; Z83.3 Family history of diabetes mellitus; Z87.440 Personal history of urinary (tract) infections; Z98.891 History of uterine scar from previous surgery; Z90.49 Acquired absence of other specified parts of digestive tract; Z98.890 Other specified postprocedural states; Z84.1 Family history of disorders of kidney and ureter; Z11.59 Encounter for screening for other viral diseases
CPT/HCPCS: 99285

== ENCOUNTER 2019-12-05 23:50 | Emergency (ER) | payer OTHER ==
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
[2019-12-06] MEDS ORDERED: diphenhydrAMINE 50 MG/ML 1 ML VIAL IVP STA (01:19)
[2019-12-06] MEDS ORDERED: SODIUM CHLORIDE 0.9% 1,000 ML IV STA (01:19)
[2019-12-06] MEDS ORDERED: METOCLOPRAMIDE 5 MG/ML 2 ML VIAL IVP STA (01:19)
[2019-12-06] MEDS ORDERED: KETOROLAC 30 MG/ML 1 ML VIAL IVP STA (01:19)
[2019-12-06 03:09] VITALS: BP 142/90; PULSE 82; RESP 17; TEMP 97.9
== END 2019-12-06 03:09 | disposition home or self-care (01) ==
LOC: EC 23:50
DX: G43.909 Migraine, unspecified, not intractable, without status migrainosus (principal)
CPT/HCPCS: 99284; 96365; 96375 ×3; 96361; J1200; J2765; J2930; J1885

== ENCOUNTER → 2019-12-20 | Outpatient (CLI) | payer OTHER ==
[2019-12-20 20:13] LABS: African American GFR (CKD) 116.3 (60.0-200.0); Anion Gap 8.9 mmol/L (4.00-12.00); Calcium 9.4 mg/dL (8.7-10.3); Carbon Dioxide 26.1 mmol/L (21.6-31.8); Non-African American GFR(CKD) 100.3 (60.0-200.0); Potassium 4.3 mmol/L (3.5-5.5)
[2019-12-20 20:14] LABS: Magnesium 1.9 mg/dL (1.5-2.4)
[2019-12-20 21:43] LABS: Hemoglobin A1C 5.1 % (4.0-6.0)
== END | disposition home or self-care (01) ==
LOC: LABWHC1 12:41
PROVIDERS: ATTEND Family Medicine
DX: I10 Essential (primary) hypertension (principal); Z79.899 Other long term (current) drug therapy
CPT/HCPCS: 36415; 80048; 83036; 83735; 84443; 84681

== ENCOUNTER → 2019-12-30 | Outpatient (CLI) | payer OTHER ==
[2019-12-30 13:51] VITALS: BP 144/87; PULSE 81; RESP 16; TEMP 98.4; BMI 43.7
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
== END | disposition home or self-care (01) ==
LOC: BARWHC3 13:30
PROVIDERS: ATTEND Surgery
DX: E66.01 Morbid (severe) obesity due to excess calories (principal); Z68.41 Body mass index [BMI] 40.0-44.9, adult
CPT/HCPCS: 99211

== ENCOUNTER → 2020-01-24 | Outpatient (CLI) | payer OTHER ==
[2020-01-24 20:09] LABS: African American GFR (CKD) 100.8 (60.0-200.0); Anion Gap 10.5 mmol/L (4.00-12.00); BUN/Creat Ratio 16.67 Ratio (12.00-20.00); Carbon Dioxide 25.5 mmol/L (21.6-31.8); Magnesium 1.8 mg/dL (1.5-2.4); Potassium 4.1 mmol/L (3.5-5.5)
== END | disposition home or self-care (01) ==
LOC: LABWHC1 14:19
PROVIDERS: ATTEND Internal Medicine Interventional Cardiology
DX: I10 Essential (primary) hypertension (principal)
CPT/HCPCS: 36415; 80048; 83735

== ENCOUNTER → 2020-09-09 | Outpatient (CLI) | payer OTHER ==
[2020-09-09 16:42] LABS: Estradiol 38.4 pg/mL; Follicle Stimulating Hormone 9.3 mIU/mL; Luteinizing Hormone 3.2 mIU/mL; Prolactin 4.7 ng/mL (2.8-29.2)
== END | disposition home or self-care (01) ==
LOC: LABWHC1 08:58
PROVIDERS: ATTEND Obstetrics & Gynecology
DX: Z13.29 Encounter for screening for other suspected endocrine disorder (principal); N93.8 Other specified abnormal uterine and vaginal bleeding
CPT/HCPCS: 36415; 82670; 83001; 83002; 84146; 84443

== ENCOUNTER → 2020-09-15 | Outpatient (CLI) | payer OTHER ==
--- NOTE | 2020-09-15 16:48 | US ---
EXAMINATION TYPE: US pelvic complete DATE OF EXAM: 09/15/2020 COMPARISON: NONE CLINICAL HISTORY: N93.8 Dysfunctional uterine bleeding. DUB TECHNIQUE: Transabdominal (TA). EXAM MEASUREMENTS: Uterus: 10.7 x 3.6 x 5.1 cm Endometrial Stripe: .4 cm Left Ovary: 3.2 x 2.6 x 3.0 cm 1. Uterus: Anteverted wnl 2. Endometrium: wnl 3. Right Ovary: Obscured by overlying bowel gas 4. Left Ovary: Cystic area seen 2.3 x 1.7 x 1.8 cm 5. Bilateral Adnexa: wnl 6. Posterior cul-de-sac: wnl IMPRESSION: Nonspecific left ovarian cyst. Otherwise unremarkable study. Correlate clinically.
== END | disposition home or self-care (01) ==
LOC: RADUSWWP 16:20
PROVIDERS: ATTEND Obstetrics & Gynecology
DX: N83.202 Unspecified ovarian cyst, left side (principal)
CPT/HCPCS: 76856